=== PATIENT | male | born 1970 | race Caucasian/White ===

== ENCOUNTER 2018-11-27 05:15 | Day surgery (SDC) | payer OTHER ==
[~2018-11-27 05:15] MED LIST: WELLBUTRIN SR150 MG
[2018-11-27] MEDS ORDERED: ULTRACET PO (09:44)
[2018-11-27] MEDS ORDERED: NEURONTIN300 MG PO (09:46)
[2018-11-27] MEDS ORDERED: COLACE100 MG PO (09:47)
== END 2018-11-27 11:10 | disposition home or self-care (01) ==
LOC: CIR.AMB 05:15
DX: K40.90 Unilateral inguinal hernia, without obstruction or gangrene, not specified as recurrent (principal)